=== PATIENT | male | born 1985 | race African-American/Black ===

== ENCOUNTER 2018-11-13 12:27 | Emergency (ER) | payer MEDICAID ==
[~2018-11-13] VITALS: Ht 167.6 cm; Wt 77.3 kg
[2018-11-13] MEDS ORDERED: PARO10TA89 PO (12:33)
[2018-11-13] MEDS ORDERED: MIRT15 PO (12:33)
[2018-11-13] MEDS ORDERED: HYDR-4031 PO (12:33)
[2018-11-13 13:03] VITALS: BP 117/71
== END 2018-11-13 13:23 | disposition home or self-care (01) ==
LOC: EMS 12:29
DX: F41.9 Anxiety disorder, unspecified (principal); Z76.0 Encounter for issue of repeat prescription